=== PATIENT | female | born 2000 | race Caucasian/White ===

== ENCOUNTER 2021-12-07 19:00 | Observation (INO) | payer BC, OTHER ==
[2021-12-07] MEDS ORDERED: hydrALAZINE 20 MG/ML VIAL SLOW IVP PRN (19:54)
[2021-12-07 20:37] VITALS: BMI 26.9
[2021-12-07 21:52] LABS: Bilirubin Neg (Negative); Blood, Urine Negative (Negative); Clarity Clear (Clear); Glucose, Urine (Dipstick) Normal (Negative); Ketone, Urine Negative (Negative); Leukocyte 100 (Negative); Nitrite Negative (Negative); Protein, Urine (Dipstick) Negative (Neg-Trace); Urobilinogen Normal mg/dL (Less than 2); pH, Urine 6.5 (5.0-9.0)
[2021-12-07] MEDS ORDERED: Lactated Ringer's 1,000 ML IV SCH (22:30)
[2021-12-07 22:34] LABS: RBC/HPF 0-3 HPF (0-3)
[2021-12-07 22:35] LABS: Bacteria/HPF Rare-Few HPF (None Seen)
[2021-12-08] MEDS ORDERED: Acetaminophen 500 MG TAB PO PRN (00:25)
[2021-12-08] MEDS ORDERED: Ondansetron PF 4 MG/2 ML Vial IVP PRN (00:25)
[2021-12-08] MEDS ORDERED: Promethazine HCl 25 MG/ML VIAL IM PRN (00:25)
[2021-12-08] MEDS ORDERED: Butorphanol Tartrate 1 MG/ML VIAL SLOW IVP PRN (00:25)
== END 2021-12-08 07:35 | disposition home or self-care (01) ==
LOC: CSHLD/OP 19:00 → CSHLD 12-08 00:40
PROVIDERS: ADMIT Family Medicine; ATTEND Family Medicine
DX: O47.03 False labor before 37 completed weeks of gestation, third trimester (principal); Z3A.35 35 weeks gestation of pregnancy; Z87.891 Personal history of nicotine dependence
CPT/HCPCS: 81003; 81015; 87480; 87510; 87660; 99285; G0378

== ENCOUNTER 2021-12-09 15:55 | Day surgery (SDC) | payer BC, OTHER ==
[2021-12-09] MEDS ORDERED: hydrALAZINE 20 MG/ML VIAL SLOW IVP PRN (17:12)
[2021-12-09] MEDS ORDERED: Lactated Ringer's 1,000 ML IV SCH ×2 (19:45)
[2021-12-09] MEDS ORDERED: Betamet Acet/Betamet Na Ph 30 MG/5 ML VIAL ONE (22:47)
[2021-12-09] MEDS ORDERED: Betamet Acet/Betamet Na Ph 30 MG/5 ML VIAL IM SCH (23:00)
[2021-12-09 23:55] LABS: Bilirubin Neg (Negative); Blood, Urine 150 (Negative); Clarity Clear (Clear); Glucose, Urine (Dipstick) Normal (Negative); Ketone, Urine Negative (Negative); Leukocyte 100 (Negative); Nitrite Negative (Negative); Protein, Urine (Dipstick) Negative (Neg-Trace); Specific Gravity, Urine 1.005 (1.002-1.036); Urobilinogen Normal mg/dL (Less than 2); pH, Urine 6.5 (5.0-9.0)
[2021-12-10 00:05] LABS: Bacteria/HPF Rare-Few HPF (None Seen); RBC/HPF 0-3 HPF (0-3); Urine Culture Reflex No No
[2021-12-11 14:43] LABS: Chlamydia by PCR Not Detected (NotDetected); GC by PCR Not Detected (NotDetected)
== END 2021-12-09 22:48 | disposition home or self-care (01) ==
LOC: CSHLD/OP 15:55
PROVIDERS: ATTEND Family Medicine
DX: O99.891 Other specified diseases and conditions complicating pregnancy (principal); N89.8 Other specified noninflammatory disorders of vagina; O47.03 False labor before 37 completed weeks of gestation, third trimester; Z3A.35 35 weeks gestation of pregnancy; Z87.891 Personal history of nicotine dependence
CPT/HCPCS: 81001; 87081; 87491; 87591; 87661; 96360; 96361; 96372; 99283; J0702

== ENCOUNTER 2022-04-03 17:54 | Emergency (ER) | payer BC, OTHER ==
[2022-04-03] MEDS ORDERED: Ketorolac Tromethamine 30 MG/ML VIAL ONE (21:24)
== END 2022-04-03 21:05 | disposition home or self-care (01) ==
LOC: CSHERS 17:54
DX: F07.81 Postconcussional syndrome (principal); R51.9 Headache, unspecified
CPT/HCPCS: 96372; 99283; J1885

== ENCOUNTER 2022-12-18 19:01 | Emergency (ER) | payer BC, OTHER | END 2022-12-18 22:18 | disposition home or self-care (01) | LOC: CSHERS 19:01 | DX: J39.9 Disease of upper respiratory tract, unspecified (principal); R07.9 Chest pain, unspecified; Z20.822 Contact with and (suspected) exposure to COVID-19; F17.290 Nicotine dependence, other tobacco product, uncomplicated | CPT/HCPCS: 36415; 71046; 84484; 93005; U0003; U0005 ==